=== PATIENT | female | born 1990 | race Caucasian/White ===

== ENCOUNTER 2025-01-15 14:12 | Emergency (ER) | payer OTHER, SELFPAY ==
[2025-01-15 14:14] VITALS: BP 138/92
[2025-01-15 14:37] LABS: % Basophils 0.4 % (0-2); % Eosinophils 0.4 % (0-6); % Immature Granulocytes 0.3 % (0-0.5); % Lymphocytes 30.4 % (20.5-51.1); % Neutrophils 61.5 % (42.2-75.2); Absolute Lymphocytes 2.3 10^3/uL (1.2-3.4); Absolute Monocytes 0.5 10^3/uL (0.1-0.6); Absolute Neutrophils 4.7 10^3/uL (1.4-6.5); Hematocrit 41.5 % (37.0-47.0); Hemoglobin 15.4 g/dL (12.0-16.0); Mean Corp Hgb Conc. 37.1 g/dL (33.0-37.0); Mean Corpuscular Hgb 32.6 pg (27.0-31.0); Mean Corpuscular Volume 87.7 fL (81.0-99.0); Mean Platelet Volume 10.2 fL (7.4-10.4); Nucleated Red Blood Cells % 0 %; Platelet Count 236 10^3/uL (130-400); Red Blood Cell Count 4.73 10^6/uL (4.20-5.40); Red Cell Dist. Width 11.9 % (11.5-14.5); White Blood Cell Count 7.6 10^3/uL (4.8-10.8)
[2025-01-15 15:08] LABS: HCG, Serum Qualitative Screen Negative
[2025-01-15 15:13] LABS: ALT (SGPT) 20 U/L (0-35); AST (SGOT) 18 U/L (14-36); Albumin 4.9 g/dl (3.5-5.0); Alkaline Phosphatase 64 U/L (38-126); Blood Urea Nitrogen 9 mg/dl (7-17); Calcium 10.1 mg/dl (8.4-10.2); Carbon Dioxide 20 mmol/L (22-30); Chloride 106 mmol/L (98-107); Glucose 132 mg/dl (70-99); Potassium 3.4 mmol/L (3.5-5.1); Sodium 139 mmol/L (135-145); Total Protein 8.2 g/dl (6.3-8.2); eGFR > 60.00
[2025-01-15 16:13] LABS: TSH Reflex To Free T4 0.97 uIU/ml (0.47-4.68)
[2025-01-15 17:00] VITALS: BP 135/93
[2025-01-15 17:01] VITALS: BMI 21.5
--- NOTE | 2025-01-15 17:18 | ED.GENMED ---
History of Present Illness
General
Chief Complaint: Anxiety
Source: patient
Exam Limitations: none
Time Seen by Provider: 01/15/25 16:56
Nursing documentation reviewed up to this point in time: agreed with
History of Present Illness
History of Present Illness:
Patient is a 34-year-old female with past medical history of anxiety presents to the ER for evaluation.
She stood up earlier this afternoon at work and felt a little short of breath and felt her heart racing. 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
elevated heart rate when she gets nervous or is at a doctor's office. She denies any associated chest. She can physically feel her heart racing. She has no prior diagnosis of an arrhythmia or SVT she has not. She has never been seen by
cardiology.
She does feel very anxious here in the ER she does mention that she has some numbness and tingling in her hands and fingers prior to arrival in the car talking to EMS
In addition she reports ever since having a root canal done on her left, lower tooth in October she has had chronic jaw pain. She has been evaluated by both her dentist and retail customer service representative for this and is actually scheduled for oral surgery appointment
tomorrow. She has been on 2 rounds of antibiotics, in November and the last antibiotic round was December 30 to January 09. She did complete amoxicillin at that time. She denies any facial swelling or jaw swelling. Denies any fever chills.
This jaw pain is not new. She denies any chest pain. Denies any back pain.
No prior history of DVT PE no clotting disorder history. She is on control. She does not smoke.
She is also anxious over the fact that her has Lyme and would like to be tested for Lyme. She has chronic joint problems and has been worked up multiple times for lupus but the test have been negative
Past History
Past History
ED Past Medical History: GERD
Social History
Tobacco: Non-smoker
Review of Systems
Review of Systems
Allergies reviewed?: Yes
Other source history: family
All Other Systems: ROS reviewed and negative except as documented in HPI and ROS
Constitutional: Reports no symptoms; Denies fever, fatigue or chills
EENT: Reports other (b/l jaw pain since October )
Respiratory: Reports trouble breathing (Resolved now)
Cardiac: Reports palpitations (Intermittent now); Denies chest pain, diaphoresis or syncope
ABD/GI: Reports no symptoms
Musculoskeletal: Reports no symptoms
Skin: Reports no symptoms
Neurological: Reports no symptoms
Psychiatric: Reports no symptoms
Phy Exam
General Physical Exam
General Presentation: no apparent distress
General age: appears stated age
General Skin: warm and dry
General Habitus: normal
General Mental: anxious
General Hydration: appears well hydrated
ENT Exam
ENT Exam: EOMI, neck supple and other (No facial swelling no gum swelling no trismus)
Cardiovascular Exam
Cardiovascular Exam: tachycardia
Pulmonary Exam
Pulmonary Exam: lungs clear
Neurological Exam
Neurological Exam: alert and oriented x3
Musculoskeletal Exam
Musculoskeletal Exam: full ROM
Skin Exam
Skin Exam: normal color and warm/dry
Psychiatric Exam
Psychiatric Exam: normal mood/affect
Course
Orders/Labs/Results
Orders:
Orders
01/15/25 14:18
Electrocardiogram (*1) Urgent
Reason for Study: Bradycardia / Tachycardia
01/15/25 14:19
EKG- Treatment ONCE
Test Result ONCE
01/15/25 14:31
CMP [Comprehensive Metabolic Panel] Urgent
Complete Blood Count/With Diff Urgent
HCG, Serum Qualitative Screen Urgent
Lyme Progressive Urgent
Comment: ADD ON
TSH Reflex To Free T4 Urgent
01/15/25 17:36
Add On- LAB Urgent
Tests Added?: lyme progressive
Orthostatic VS- Treatment ONCE
01/15/25 18:54
DDimer [D-Dimer] Urgent
Abnormal Lab Results
01/15/25
14:31
MCH 32.6 H pg
(27.0-31.0)
MCHC 37.1 H g/dL
(33.0-37.0)
Potassium 3.4 L mmol/L
(3.5-5.1)
Carbon Dioxide 20 L mmol/L
(22-30)
Glucose 132 H mg/dl
(70-99)
01/15/25 14:31
01/15/25 14:31
Vital Signs
Initial and Last Documented VS:
Initial Vital Signs
Temp Pulse Resp BP Pulse Ox
98.3 F 128 25 138/92 100
01/15/25 14:14 01/15/25 14:14 01/15/25 14:14 01/15/25 14:14 01/15/25 14:14
Last Documented Vital Signs
Temp Pulse Resp BP Pulse Ox
98.3 F 145 12 124/94 95
01/15/25 14:14 01/15/25 18:06 01/15/25 18:06 01/15/25 18:06 01/15/25 18:06
MDM/Problems Addressed
Differential Diagnosis Includes:
Not limited to arrhythmia, tachycardia, anxiety
MDM/Problems Addressed:
As documented patient is a 34-year-old female with anxiety presented with racing heart rate. It is reported in triage that she has a history of SVT however she has no diagnosis documented of SVT or arrhythmia she has never been seen by cardiology.
She presents to the ER awake alert no acute distress however very anxious she does have a history of tachycardia when she is seen by physicians in the past and reports she is whitecoat syndrome. She is nontoxic. She had negative orthostatic vital
signs. She is on oral contraceptives and D-dimer was done and negative. Her white count is normal she is afebrile and her hCG is negative. Patient has had chronic pain in the jaw ever since getting her root canal done in October she has been on 2
doses of antibiotics however there has been no clear cause for patient's continued pain despite the root canal. She has been evaluated by her dentist and retail customer service representative. She is actually scheduled for oral surgery appointment tomorrow.
On exam there is no evidence of infection she has no facial swelling no gum swelling or fluctuance no trismus again she is afebrile with normal white count. Will have patient continue to see her oral surgeon as scheduled tomorrow. Regarding
tachycardia and palpitations will DC with cardiology follow-up for possible Holter monitor.
*Critical Care Note
Total Time (30-74mins, 75-104mins- exclusive of procedures): Not Applicable
ED Attending Note
-
Portions of this chart may have been created with voice recognition software.� Occasional wrong word or��sound alike� substitutions may have occurred due to the inherent limitations of voice recognition software.
Discharge Plan
Departure
Patient Disposition: Home (Routine Discharge)
Date of Disposition: 01/15/25
Time of Disposition: 19:24
Patient with high blood pressure during this ER visit?: Yes
Condition: Fair
Covid-19: Not Applicable
Discharge Problem:
Heart palpitations
Instructions: BLOOD PRESSURE, Heart Palpitations
Prescriptions:
No Action
ascorbic acid (vitamin C) [Vitamin C] 500 MG tablet
500 mg PO DAILY
cholecalciferol (vitamin D3) 1,000 UNITS tablet
2,000 units PO DAILY
Control
1 tab PO DAILY
Omeprazole
1 tab PO DAILY
famotidine 20 MG tablet
20 mg PO BID Qty: 28 0RF
Rx Instructions:
Take 20 mg twice a day for 14 days
aspirin 81 MG tablet,chewable
81 mg PO DAILY Qty: 14 0RF
Rx Instructions:
Take 81 mg daily for 14 days
zinc sulfate 220 MG capsule
220 mg PO DAILY Qty: 14 0RF
Rx Instructions:
Take 220 mg daily for 14 days
melatonin 5 MG tablet
5 mg PO HS Qty: 14 0RF
Rx Instructions:
Take 5 mg daily at bedtime for 14 days
Referrals:
Catalina Whelan MD [Active, Cardiology]
UNKNOWN - PT DOES,NOT KNOW [Unknown Provider]
Activity Restrictions/Additional Instructions:
As discussed please follow-up with cardiology for continued evaluation of palpitations. In addition please continue to follow-up with your oral surgeon appointment as scheduled tomorrow. Stay well-hydrated. Your thyroid was normal here in the ER.
As requested Lyme testing was done and pending at this time please have your family doctor follow-up with this result as well. Return if any worsening of symptoms.
Interventions
Interventions:
*Risk Screen - Suicide Last Done: 01/15/25 14:14
*General Assessment Last Done: 01/15/25 17:02
*Neglect/Abuse Screening Last Done: 01/15/25 14:14
*ED- Fall Risk Assessment Last Done: 01/15/25 17:02
*ED COVID-19 Vaccine History Last Done: 01/15/25 17:02
*Nursing Disposition Last Done: 01/15/25 20:08
ED-Psychological Assessment Last Done: 01/15/25 17:02
Discharge Date and Time
Discharge Date/Time: 01/15/25 20:10
Print Language: DUTCH
[2025-01-15 18:00] VITALS: BP 119/77
[2025-01-15 18:03] VITALS: BP 124/95
[2025-01-15 18:06] VITALS: BP 124/94
[2025-01-15 18:09] VITALS: BP 119/77; BP 124/95; PULSE 144; PULSE 146; PULSE 152
[2025-01-15 19:14] LABS: D-Dimer < 0.27 ug/mlFEU (0.00-0.50)
[2025-01-16 16:08] LABS: Lyme Antibody Screen, EIA Negative (Negative)
== END 2025-01-15 20:10 | disposition home or self-care (01) ==
LOC: EMR 14:12
PROVIDERS: Emergency Medicine; Nurse Practitioner; EMERGENCY PHYSICIAN Emergency Medicine; FAMILY PHYSICIAN Nurse Practitioner
DX: R00.2 Palpitations (principal); F41.9 Anxiety disorder, unspecified; R06.02 Shortness of breath; Z86.79 Personal history of other diseases of the circulatory system
CPT/HCPCS: 99283; 80053; 84443; 84703; 85025; 85379; 86618; 93005